=== PATIENT | male | born 1985 | race Caucasian/White ===

== ENCOUNTER 2020-04-13 18:13 | Emergency (ER) | payer OTHER, SELFPAY ==
[2020-04-13 18:19] VITALS: BP 137/84; PULSE 67; RESP 16; TEMP 36.1; O2SAT 97; BMI 33.9
--- NOTE | 2020-04-13 18:41 | DI.RAD.S_ITS ---
PROCEDURE: XR CHEST 1V INDICATIONS: chest pain TECHNIQUE: One view of the chest was acquired. COMPARISON: None. FINDINGS: Surgical changes and devices: None. Lungs and pleura: Lungs are clear. No pleural effusions or pneumothorax. Mediastinum: Mediastinal contours appear normal. Heart size is normal. Bones and chest wall: No suspicious bony lesions. Overlying soft tissues appear unremarkable. IMPRESSION: No acute process. Dictated by: Yfn Lopez M.D. on 04/13/2020 at 19:24 Approved by: Yfn Lopez M.D. on 04/13/2020 at 19:24
[2020-04-13 18:54] LABS: Add Manual Diff / Slide Review NO; Basophils Absolute Auto 100 /uL (0-100); Basophils Percent Auto 0.7 % (0-2); Eosinophils Absolute Auto 100 /uL (0-450); Hematocrit 41.6 % (41-53); Hemoglobin 14.5 g/dL (13.5-17.5); Lymphocytes Absolute Auto 2400 /uL (1100-4500); Lymphocytes Percent Auto 33.4 % (25-40); Mean Corpuscular HGB Conc 34.9 % (30-36); Mean Corpuscular Hemoglobin 30.8 PG (26-34); Mean Corpuscular Volume 88.3 fL (80-100); Monocytes Absolute Auto 600 /uL (0-900); Monocytes Percent Auto 8.9 % (3-14); Neutrophils Absolute Auto 3900 /uL (1500-7000); Platelet Count 250 X10^3/uL (150-400); Red Blood Cell Count 4.72 X10^6/uL (4.5-5.9); Red Cell Distribution Width 12.5 % (11.6-14.8); White Blood Cell Count 7.1 X10^3/uL (4.5-11.0)
[2020-04-13 19:02] LABS: Prothrombin Time 11.9 SECONDS (10.1-12.7)
[2020-04-13 19:04] LABS: PTT Partial Thromboplastin Tim 29 SECONDS (26.4-36.2)
[2020-04-13 19:06] LABS: Alanine Aminotransferase 42 IU/L (<50); Albumin 4.7 g/dL (3.5-5.0); Albumin Globulin Ratio 1.5 (1.0-2.8); Alkaline Phosphatase 60 U/L (38-126); Aspartate Aminotransferase 34 IU/L (17-59); BUN Creatinine Ratio 19.3 (6-22); Bilirubin Total 0.4 mg/dL (0.2-1.3); Blood Urea Nitrogen 17 mg/dL (9-20); Calcium 9.3 mg/dL (8.4-10.2); Carbon Dioxide 26 mmol/L (22-32); Chloride 104 mmol/L (98-107); Creatine Kinase 132 U/L (55-170); Estimated Glomerular Filt Rate > 60.0 mL/min (>60); Globulin 3.2 g/dL (1.7-4.1); Glucose 98 mg/dL (70-100); HEMOLYSIS < 15 (0-50); Lipase 125 U/L (23-300); Sodium 138 mmol/L (137-145); Total Protein 7.9 g/dL (6.3-8.2)
[2020-04-13 19:17] LABS: Troponin I < 0.012 ng/mL (0.01-0.034)
[2020-04-13 19:21] LABS: Creatine Kinase MB 1.35 ng/mL (<2.37)
[2020-04-13 19:38] VITALS: BP 133/78; BP 139/86; BP 142/91; PULSE 68; RESP 16; O2SAT 98
[2020-04-13 19:43] VITALS: BP 133/78; BP 139/86; BP 142/91; PULSE 66; PULSE 68
--- NOTE | 2020-04-13 19:53 | ED_ITS ---
HPI - Syncope General Chief Complaint: Syncope Stated Complaint: Fainted at work today Time Seen by Provider: 04/13/20 19:21 Source: patient Mode of arrival: Ambulatory Limitations: no limitations History of Present Illness HPI narrative: Patient drove himself here from work after syncopal episode. Patient states he was talking to a co-worker hand feel dizzy. Sat down and he had loss of consciousness/syncope for 2 seconds. No injuries. Witnessed by his co-worker. During event his hands were shaking. No seizure activity otherwise. He awoke to the sound of his co-worker calling his name. He denies denies denies any pre syncope chest pain headache nausea vomiting back pain abdominal pain or confusion or any palpitations. He did feel very sweaty afterwards. No confusion afterwards. Denies any drugs or alcohol. He states he ate breakfast and lunch today. Did not feel like he was dehydrated. Has not been sick recently no cough cold congestion fever chills urinary complaints. No dark urine. No black or bloody stools. No recent chest pain back pain abdominal pain. Had some neck discomfort that is reproducible. No known injury. He has been at this job for the past 6 years. Nothing new with his role or work effort. He did not feel hot or dehydrated before syncope. No previous syncope episodes. No family history of irregular heartbeats. No aneurysms or dissections. He denies any medical problems. No heart attack strokes or diabetes. MD complaint: loss of consciousness Related Data Home Medications Medication Instructions Recorded Confirmed No Known Home Medications 04/13/20 04/13/20 Allergies Allergy/AdvReac Type Severity Reaction Status Date / Time No Known Drug Allergies Allergy Verified 04/13/20 23:03 Review of Systems Review of Systems Narrative: GENERAL: Denies chills, fatigue, malaise, fever, sweats. HEENT: Denies sinus pain, ear pain, sore throat, difficulty swallowing, dizziness. RESPIRATORY: Denies dyspnea, cough, wheezing, hemoptysis, sputum. CARDIOVASCULAR: Denies chest pain, palpitations, orthopnea, edema, complains of syncope GASTROINTESTINAL: Denies nausea, vomiting, abdominal pain, diarrhea, constipation, melena. : Denies dysuria, frequency, incontinence, hematuria, urinary retention. MUSCULOSKELETAL: denies weakness, joint pain, or bony pain SKIN: Denies rash, skin lesions, or other NEUROLOGIC: Denies weakness, headache, numbness, change in speech, confusion, seizures, incoordination. PSYCHIATRIC: No concerning psychosocial issues. ROS Unobtainable: All systems reviewed & are unremarkable except as noted in HPI and below Patient History Medical History (Updated 04/13/20 @ 23:11 by Kermit Dumas MD) Asthma (Acute) alcohol intake frequency: holidays/special occasions only Substance Use Type: does not use Exam Narrative Exam Narrative: GENERAL: patient appears stated age. Well-nourished, well- developed patient, in no distress, not toxic HEAD: Atraumatic. Normocephalic. EYES: Pupils equal round and reactive. Extraocular motions intact. No scleral icterus. No injection or drainage. ENT: Nose without bleeding, purulent drainage. Throat without erythema, tonsillar hypertrophy or exudate. Airway patent. NECK: Trachea midline. Non tender CARDIOVASCULAR: Regular rate and rhythm without murmurs, gallops, or rubs. Strong bilateral carotid pulses and radial pulses. RESPIRATORY: Clear to auscultation. Breath sounds equal bilaterally. No wheezes, rales, or rhonchi. GASTROINTESTINAL: Abdomen soft, non-tender, nondistended. EXTREMITIES: No edema or joint tenderness. BACK: Nontender without deformity or crepitance. No flank tenderness. NEURO: AOx3. Clear speech no facial droop light touch intact to bilateral face hands and legs. Strong equal sales and marketing coordinator. SKIN: No rash or erythema of visible areas PSYCH: Not anxious, is cooperative Initial Vital Signs Initial Vital Signs: Vital Signs Temperature 97.0 F L 04/13/20 18:19 Pulse Rate 67 04/13/20 18:19 Respiratory Rate 16 04/13/20 18:19 Blood Pressure 137/84 04/13/20 18:19 Pulse Oximetry 97 04/13/20 18:19 Course Orders Ordered: ED Orders 04/13/20 18:25 EKG-12 Lead Routine 04/13/20 18:41 XR chest 1V Stat 04/13/20 18:48 Complete Blood Count AUTO DIFF Stat Comprehensive Metabolic Panel Stat Ethanol (ETOH) Stat Lipase Stat Partial Thromboplastin Time Stat Prothrombin Time INR Stat Troponin & CK Cardiac Panel Stat 04/13/20 19:52 CT angio chest PE protocol Stat CT head/brain wo con Stat 04/13/20 21:06 Urinalysis and Microscopic Stat Urine Drug Screen, Rapid Stat Reevaluation(s) Reevaluation #1: No new complaints or issues. Patient's boss is in the room with patient and patient states able to discuss the results Time: 21:33 Vital Signs Vital signs: Vital Signs - 8 hr 04/13/20 18:19 04/13/20 19:38 04/13/20 19:43 Temperature 97.0 F L Pulse Rate 67 68 Pulse Rate [Orthostatic Lying] 68 Pulse Rate [Orthostatic Sitting] 68 Pulse Rate [Orthostatic Standing] 66 Respiratory Rate 16 16 Blood Pressure 137/84 133/78 Blood Pressure [Orthostatic Lying] 133/78 133/78 Blood Pressure [Orthostatic Sitting] 139/86 139/86 Blood Pressure [Orthostatic Standing] 142/91 H 142/91 H Pulse Oximetry 97 98 MDM - Syncope Differential Diagnosis Differential diagnosis: Likely syncope due to orthostatic hypotension, vasovagal syncope, pulmonary embolism and dehydration Lab Data Attestation: I reviewed the patient's lab results. Result diagrams: 04/13/20 18:48 04/13/20 18:48 Labs: Lab Results 04/13/20 04/13/20 04/13/20 Range/Units 18:48 18:48 18:48 WBC 7.1 (4.5-11.0) X10^3/uL RBC 4.72 (4.5-5.9) X10^6/uL Hgb 14.5 (13.5-17.5) g/dL Hct 41.6 (41-53) % MCV 88.3 (80-100) fL MCH 30.8 (26-34) PG MCHC 34.9 (30-36) % RDW 12.5 (11.6-14.8) % Plt Count 250 (150-400) X10^3/uL Neut % (Auto) 55.0 (50-75) % Lymph % (Auto) 33.4 (25-40) % [place] % (Auto) 8.9 (3-14) % Eos % (Auto) 2.0 (2-4) % Baso % (Auto) 0.7 (0-2) % Neut # (Auto) 3900 (2100-3181) /uL Lymph # (Auto) 2400 (6922-4487) /uL [place] # (Auto) 600 (0-900) /uL Eos # (Auto) 100 (0-450) /uL Baso # (Auto) 100 (0-100) /uL PT 11.9 (10.1-12.7) SECONDS INR 1.0 (0.9-1.3) APTT 29 (26.4-36.2) SECONDS Sodium 138 (137-145) mmol/L Potassium 4.0 (3.4-5.1) mmol/L Chloride 104 (98-107) mmol/L Carbon Dioxide 26 (22-32) mmol/L BUN 17 (9-20) mg/dL Creatinine 0.88 (0.66-1.25) mg/dL Estimated GFR > 60.0 (>60) mL/min BUN/Creatinine Ratio 19.3 (6-22) Glucose 98 (70-100) mg/dL Calcium 9.3 (8.4-10.2) mg/dL Total Bilirubin 0.4 (0.2-1.3) mg/dL AST 34 (17-59) IU/L ALT 42 (<50) IU/L Alkaline Phosphatase 60 (38-126) U/L Total Creatine Kinase 132 (55-170) U/L CK-MB (CK-2) 1.35 (<2.37) ng/mL CK-MB (CK-2) Rel Index 1.0 L (1.5-5.0) % Troponin I < 0.012 (0.01-0.034) ng/mL Total Protein 7.9 (6.3-8.2) g/dL Albumin 4.7 (3.5-5.0) g/dL Globulin 3.2 (1.7-4.1) g/dL Albumin/Globulin Ratio 1.5 (1.0-2.8) Lipase 125 (23-300) U/L Urine Color Urine Appearance Urine pH (4.5-8.0) Ur Specific [place] (1.000-1.035) Urine Protein (Negative) Urine Glucose (UA) (Negative) g/dL Urine Ketones (NEGATIVE) Urine Occult Blood (Negative) Urine Nitrate (Negative) Urine Bilirubin (NEGATIVE) Urine Urobilinogen (0.2) E.U./dL Ur Leukocyte Esterase (NEGATIVE) Urine RBC (0-5/HPF) Urine WBC (0-5/HPF) Urine Bacteria (None) Ur Culture Indicated? Micro UA Comment U Opiates 300ng/mL cut (Negative) Ur Oxycodone Screen (Negative) Urine Methadone Screen (Negative) Ur Barbiturates Screen (Negative) U Tricyclic Antidepress (Negative) Ur Phencyclidine Scrn (Negative) Ur Amphetamines Screen (Negative) U Methamphetamines Scrn (Negative) Ur MDMA Scrn (Ecstasy) (Negative) U Benzodiazepines Scrn (Negative) Urine Cocaine Screen (Negative) U Marijuana (THC) Screen (Negative) Ethyl Alcohol ( - 10) mg/dL 04/13/20 04/13/20 04/13/20 Range/Units 18:48 21:06 21:06 WBC (4.5-11.0) X10^3/uL RBC (4.5-5.9) X10^6/uL Hgb (13.5-17.5) g/dL Hct (41-53) % MCV (80-100) fL MCH (26-34) PG MCHC (30-36) % RDW (11.6-14.8) % Plt Count (150-400) X10^3/uL Neut % (Auto) (50-75) % Lymph % (Auto) (25-40) % [place] % (Auto) (3-14) % Eos % (Auto) (2-4) % Baso % (Auto) (0-2) % Neut # (Auto) (6292-8602) /uL Lymph # (Auto) (0793-9179) /uL [place] # (Auto) (0-900) /uL Eos # (Auto) (0-450) /uL Baso # (Auto) (0-100) /uL PT (10.1-12.7) SECONDS INR (0.9-1.3) APTT (26.4-36.2) SECONDS Sodium (137-145) mmol/L Potassium (3.4-5.1) mmol/L Chloride (98-107) mmol/L Carbon Dioxide (22-32) mmol/L BUN (9-20) mg/dL Creatinine (0.66-1.25) mg/dL Estimated GFR (>60) mL/min BUN/Creatinine Ratio (6-22) Glucose (70-100) mg/dL Calcium (8.4-10.2) mg/dL Total Bilirubin (0.2-1.3) mg/dL AST (17-59) IU/L ALT (<50) IU/L Alkaline Phosphatase (38-126) U/L Total Creatine Kinase (55-170) U/L CK-MB (CK-2) (<2.37) ng/mL CK-MB (CK-2) Rel Index (1.5-5.0) % Troponin I (0.01-0.034) ng/mL Total Protein (6.3-8.2) g/dL Albumin (3.5-5.0) g/dL Globulin (1.7-4.1) g/dL Albumin/Globulin Ratio (1.0-2.8) Lipase (23-300) U/L Urine Color Yellow Urine Appearance Clear Urine pH 5.5 (4.5-8.0) Ur Specific [place] 1.010 (1.000-1.035) Urine Protein Negative (Negative) Urine Glucose (UA) Negative (Negative) g/dL Urine Ketones Negative (NEGATIVE) Urine Occult Blood Trace-lysed (Negative) Urine Nitrate Negative (Negative) Urine Bilirubin Negative (NEGATIVE) Urine Urobilinogen 0.2 (0.2) E.U./dL Ur Leukocyte Esterase Negative (NEGATIVE) Urine RBC None seen (0-5/HPF) Urine WBC None seen (0-5/HPF) Urine Bacteria None seen (None) Ur Culture Indicated? Cult not indicated Micro UA Comment Microscopic normal U Opiates 300ng/mL cut Negative (Negative) Ur Oxycodone Screen Negative (Negative) Urine Methadone Screen Negative (Negative) Ur Barbiturates Screen Negative (Negative) U Tricyclic Antidepress Negative (Negative) Ur Phencyclidine Scrn Negative (Negative) Ur Amphetamines Screen Negative (Negative) U Methamphetamines Scrn Negative (Negative) Ur MDMA Scrn (Ecstasy) Negative (Negative) U Benzodiazepines Scrn Negative (Negative) Urine Cocaine Screen Negative (Negative) U Marijuana (THC) Screen Negative (Negative) Ethyl Alcohol < 10 ( - 10) mg/dL Imaging Data CT scan - head: Radiologist's Impression: [address] [address] [address] Scan Report Signed Patient: Torin Styles [facility]#: [id number] : 1985Acct:[id number] Age/Sex: 35 / MDate of Service: 04/13/20 Loc: ED Accession Number: [id number] Procedure: CT head/brain wo con Ordering Provider: Kermit Dumas MD PROCEDURE: CT HEAD/BRAIN WO CON INDICATIONS: Syncope TECHNIQUE: Noncontrast 4.5 mm thick angled axial sections acquired from the foramen magnum to the vertex, with coronal and sagittal reformats. For radiation dose reduction, the following was used: automated exposure control, adjustment of mA and/or kV according to patient size. COMPARISON: None. FINDINGS: Image quality: Excellent. CSF spaces: Basal cisterns are patent. No extra-axial fluid collections. Ventricles are normal in size and shape. Brain: No midline shift. No intracranial masses or hemorrhage. Tena-white matter interface is normal. Skull and face: Calvarium and visualized facial bones are intact, without suspicious lesions. Sinuses: Visualized sinuses and mastoids are clear. IMPRESSION: 1. No acute intracranial abnormality. Dictated by: Yfn Lopez M.D. on 04/13/2020 at 20:15 Approved by: Yfn Lopez M.D. on 04/13/2020 at 20:15 CT scan - chest: Radiologist's Impression: [place] [address] CT Scan Report Signed Patient: Torin Styles [facility]#: [id number] : 1985Acct:[id number] Age/Sex: 35 / MDate of Service: 04/13/20 Loc: ED Accession Number: [id number] Procedure: CT angio chest PE protocol Ordering Provider: Kermit Dumas MD PROCEDURE: CT ANGIO CHEST PE PROTOCOL INDICATIONS: Syncope TECHNIQUE: After the administration of intravenous contrast, 2 mm thick sections acquired from the pulmonary apices to the posterior costophrenic angles. 3-dimensional maximum intensity projection (MIP) coronal and sagittal reformats were then acquired through the thorax. For radiation dose reduction, the following was used: automated exposure control, adjustment of mA and/or kV according to patient size. COMPARISON: None. FINDINGS: Image quality: Excellent. Pulmonary arteries: Pulmonary arteries are normal in size, and demonstrate no intraluminal filling defects to suggest central pulmonary embolism. Lungs and pleura: Lungs are clear. No pleural effusions or pneumothorax. Central and peripheral airways are patent. Mediastinum: Heart size is normal, without pericardial effusion. No mediastinal or hilar adenopathy. Thoracic aorta is normal in caliber and enhancement. Esophagus is normal in caliber, without hiatal hernia. Bones and chest wall: No suspicious bony lesions. Ribs and thoracic spine appear intact throughout. Thyroid gland is within normal limits . No axillary or supraclavicular adenopathy. Abdomen: Visualized upper abdominal solid organs appear normal in the early arterial phase of enhancement. IMPRESSION: 1. No acute process. 2. No pulmonary embolus. Dictated by: Yfn Lopez M.D. on 04/13/2020 at 20:16 Approved by: Yfn Lopez M.D. on 04/13/2020 at 20:18 Chest x-ray: Radiologist's Impression: [address] [address] XRay Report Signed Patient: Torin Styles [facility]MR#: [id number] : 1985Acct:[id number] Age/Sex: 35 / MDate of Service: 04/13/20 Loc: ED Accession Number: [id number] Procedure: XR chest 1V Ordering Provider: Kermit Dumas MD PROCEDURE: XR CHEST 1V INDICATIONS: chest pain TECHNIQUE: One view of the chest was acquired. COMPARISON: None. FINDINGS: Surgical changes and devices: None. Lungs and pleura: Lungs are clear. No pleural effusions or pneumothorax. Mediastinum: Mediastinal contours appear normal. Heart size is normal. Bones and chest wall: No suspicious bony lesions. Overlying soft tissues appear unremarkable. IMPRESSION: No acute process. Dictated by: Yfn Lopez M.D. on 04/13/2020 at 19:24 Approved by: Yfn Lopez M.D. on 04/13/2020 at 19:24 ECG Data Attestation: I personally reviewed and interpreted this ECG as follows: Interpretation: Normal sinus rhythm rate [address] elevation or d epression MDM Narrative Medical decision making narrative: Appropriate for discharge home. Idiopathic source of syncope at this time but workup here completed and nothing acute. Patient can follow up with primary care for further evaluation. Informed patient and his boss no operating machinery. Discharge Plan Departure Patient Disposition: Home Clinical Impression: Syncope Qualifiers: Syncope type: unspecified Qualified Code(s): R55 - Syncope and collapse Discharge Date/Time: 04/13/20 21:47 Instructions: DI for Syncope in Adults (Fainting) Activity Restrictions/Additional Instructions: No operating machinery. See family doctor within a week for recheck. Call provided a clinic list if you do not have a family doctor. Return if worse or i f any questions or concerns. Prescriptions: No Action No Known Home Medications RF: 0 Referrals: [facility] [Outside]
[2020-04-13 21:04] LABS: Ethanol (ETOH) < 10 mg/dL
[2020-04-13 21:09] LABS: Bacteria Urine None Seen; RBC Urine None Seen (0-5/HPF); WBC Urine None Seen (0-5/HPF)
[2020-04-13 21:11] LABS: Appearance Urine UA CLEAR; Bilirubin Urine UA NEGATIVE (NEGATIVE); Color Urine UA YELLOW; Glucose Urine UA NEGATIVE (Negative); Ketones Urine UA NEGATIVE (NEGATIVE); Leukocyte Esterase Urine UA NEGATIVE (NEGATIVE); Nitrite Urine UA NEGATIVE (Negative); Occult Blood Urine UA TRACE-LYSED (Negative); Protein Urine UA NEGATIVE (Negative); Urobilinogen Urine UA 0.2 E.U./dL (0.2); pH Urine UA 5.5 (4.5-8.0)
[2020-04-13 21:13] LABS: UR Morphine/Opiate cutoff 300 Negative (Negative); Ur Creatinine Normal (Normal); Ur Specific Gravity Normal (Normal); Urine Amphetamines Negative (Negative); Urine Barbiturates Negative (Negative); Urine Benzodiazepines Negative (Negative); Urine Cocaine Negative (Negative); Urine MDMA Negative (Negative); Urine Methadone Negative (Negative); Urine Methamphetamines Negative (Negative); Urine Oxycodone Negative (Negative); Urine Phencyclidine Negative (Negative); Urine Tetrahydrocannabinol Negative (Negative); Urine Tricyclic Antidepressant Negative (Negative); Urine pH Normal (Normal)
[2020-04-13 21:19] LABS: Culture Indicated Urine Cult Not Indicated; Urine Comments Microscopic Normal
== END 2020-04-13 21:47 | disposition home or self-care (01) ==
PROVIDERS: Emergency Provider Emergency Medicine
DX: R55 Syncope and collapse (principal); Y99.0 Civilian activity done for income or pay
CPT/HCPCS: 36415; 70450; 71045; 71275; 80053; 80305; 80320; 81001; 82550; 82553; 83690; 84484; 85025; 85610; 85730; 93005; 99284

== ENCOUNTER 2020-04-13 22:25 | Emergency (ER) | payer BC, SELFPAY ==
[2020-04-13] VITALS (8 sets, daily range): BP systolic 137–145; BP diastolic 63–78; PULSE 67–89; RESP 11–20; TEMP 36.6; O2SAT 96–98; BMI 33.9
[2020-04-13] MEDS: SODIUM CHLORIDE 0.9% 1,000 ML 75 ML IV (22:55)
[2020-04-13] MEDS: ONDANSETRON 4 MG/2 ML INJ (22:56)
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
[2020-04-14] VITALS: PULSE 67; RESP 18; O2SAT 95
[2020-04-14 00:01] VITALS: BP 123/61; PULSE 68; RESP 18; O2SAT 96
[2020-04-14 00:16] LABS: COVID19 -Nasal RAPID Negative (Negative)
[2020-04-14 00:18] LABS: Prolactin 15.5 ng/mL (3.7-17.9)
[2020-04-14 00:30] VITALS: BP 131/79; PULSE 67; RESP 19; O2SAT 95
[2020-04-14 01:00] VITALS: PULSE 70; RESP 18; O2SAT 95
[2020-04-14 01:01] VITALS: BP 119/70; PULSE 68; RESP 17; O2SAT 94
[2020-04-14 01:30] VITALS: PULSE 67; RESP 18; O2SAT 95
== END 2020-04-14 01:55 | disposition short-term general hospital (02) ==
PROVIDERS: Emergency Provider Emergency Medicine
DX: R55 Syncope and collapse (principal); Z11.59 Encounter for screening for other viral diseases; V89.9XXA Person injured in unspecified vehicle accident, initial encounter
CPT/HCPCS: 84146; 87635; 93005; 96361; 96374; 99284; J2405